=== PATIENT | male | born 1970 | race Caucasian/White ===

== ENCOUNTER → 2021-07-23 | Day surgery (SDC) | payer OTHER ==
[~2021-07-23] VITALS: Ht 175.3 cm; Wt 113.8 kg
[~2021-07-23] MED LIST: FLONASE ALLER15.8 ML; MEN'S ONE DAIL1 EACH PO; WELLBUTRIN XL150 MG PO
[2021-07-23 07:51] LABS: HCT 43.3 % (42.0-52.0); HGB 15.4 g/dl (13.2-18.0); MCH 30.4 pg (25.0-31.0); MCHC 35.6 g/dL (32.0-36.0); MCV 85.4 fL (78.0-100.0); MPV 10.6 fL (6.0-9.5); RBC 5.07 M/uL (4.70-6.00); RDW 13.1 % (11.5-14.0); WBC 5.7 K/uL (4.0-10.5)
[2021-07-23 08:25] LABS: CREATININE 1.3 mg/dL (0.67-1.17); POTASSIUM 3.3 mmol/L (3.5-5.1); TOTAL PROTEIN 7.7 g/dL (6.4-8.2)
[2021-07-23 08:26] LABS: ALBUMIN 4.3 g/dL (3.4-5.0); GLOBULIN (CALCULATION) 3.4 g/dL
== END | disposition home or self-care (01) ==
LOC: FAS 07:05
PROVIDERS: Surgery
DX: Z12.11 Encounter for screening for malignant neoplasm of colon (principal); Z83.71 Family history of colonic polyps; Z87.891 Personal history of nicotine dependence
CPT/HCPCS: 36415; 80053; J2704; J7120